=== PATIENT | female | born 1980 | race Hispanic/Latino ===

== ENCOUNTER 2018-09-15 20:54 | Emergency (ER) | payer BC ==
[2018-09-15] MEDS ORDERED: Ketorolac Tromethamine 60 MG/2 ML VIAL ONE (21:15)
== END 2018-09-15 22:08 | disposition home or self-care (01) ==
LOC: SCSER 20:54
DX: J39.9 Disease of upper respiratory tract, unspecified (principal)
CPT/HCPCS: 87804; 96372; J1885